=== PATIENT | female | born 1955 | race Caucasian/White ===

== ENCOUNTER → 2022-01-28 | Outpatient (CLI) | payer MEDICARE, BC ==
--- NOTE | 2022-01-28 15:09 | XR ---
EXAMINATION TYPE: XR ribs RT w pa chest xray DATE OF EXAM: 01/28/2022 CLINICAL HISTORY: Chest and right-sided rib pain after recent fall injury. TECHNIQUE: Single frontal view of the chest is obtained. A frontal and oblique images of the right-si ded ribs. COMPARISON: None FINDINGS: There is mild chronic parenchymal change bilaterally without suspicious focal air space op acity, pleural effusion, or pneumothorax seen. The cardiac silhouette size is within normal limits. The osseous structures are somewhat demineralized. Dedicated images of the right-sided ribs show no acute displaced fractures. Overlying soft tissue is unremarkable. IMPRESSION: 1. No acute cardiopulmonary process. 2. No acute displaced right-sided rib fractures.
== END | disposition home or self-care (01) ==
LOC: RADXRMAIN 14:20
PROVIDERS: ATTEND Internal Medicine
DX: R07.81 Pleurodynia (principal); R07.9 Chest pain, unspecified; S29.9XXA Unspecified injury of thorax, initial encounter; W19.XXXA Unspecified fall, initial encounter

== ENCOUNTER → 2024-12-07 | Outpatient (CLI) | payer MEDICARE ==
--- NOTE | 2024-12-07 08:51 | MR ---
EXAMINATION TYPE: MR brain wo/w con DATE OF EXAM: 12/07/2024 COMPARISON: NONE HISTORY: Family hx of dementia, headaches. Mild cognitive impairment of uncertain TECHNIQUE: Multiplanar, multisequence images of the brain and brainstem is performed without and with IV contras t, utilizing 9 mL intravenous Gadobutrol . FINDINGS: Diffusion weighted images demonstrate no evidence of a recent infarct or other diffusion ab normality. There is no extra-axial fluid collection. The ventricular system and cisternal spaces are normal in size and appearance. The brain volume is age appropriate. A few tiny foci of T2 hyperinte nsity is seen throughout the white matter bilaterally. Less than 5 focal lesions are present. Midline structures demonstrate normal morphology. The craniocervical junction appears within normal limits. Post contrast images demonstrate no abnormal enhancement. The dural venous sinuses appear pa tent. The visualized sinuses are clear and the globes are intact. IMPRESSION: Minimal nonspecific white matter changes otherwise unremarkable study. [facility], , 12/07/2024 8:49 AM
== END | disposition home or self-care (01) ==
LOC: RADMRIMAIN 07:45
PROVIDERS: ATTEND Internal Medicine
DX: G31.84 Mild cognitive impairment of uncertain or unknown etiology (principal); R90.82 White matter disease, unspecified
CPT/HCPCS: 70553; A9585

== ENCOUNTER → 2024-12-09 | Outpatient (CLI) | payer MEDICARE ==
--- NOTE | 2025-01-10 16:11 | P.CEMON ---
30 Day Event monitor note: Patient wore an event monitor for 30 days from 12/09/2024 through 01/08/2025. Findings: Patient's baseline heart rate was normal sinus rhythm. There were no signficant atrial fibrillation, atrial flutter, or ventricular tachycardia episodes. There were no significant pauses greater than 2 seconds. There were rare PACs and PVCs representing less than 1% PVC burden There were 33 patient activated events including palpitations which predominantly corresponded with normal sinus rhythm and occasionally with PVCs Conclusions: 30-day event monitor showing normal sinus rhythm and occasional PACs and PVCs. Patient activated events mainly corresponding with normal sinus rhythm and occasionally with PVCs.
--- NOTE | 2025-01-12 09:02 | EM ---
30 Day Event monitor note: Patient wore an event monitor for 30 days from 12/09/2024 through 01/08/2025. Findings: Patient's baseline heart rate was normal sinus rhythm. There were no significant atrial fibrillation, atrial flutter, or ventricular tachycardia episodes. There were no significant pauses greater than 2 seconds. There were rare PACs and PVCs representing less than 1% PVC burden There were 33 patient activated events including palpitations which predominantly corresponded with normal sinus rhythm and occasionally with PVCs Conclusions: 30-day event monitor showing normal sinus rhythm and occasional PACs and PVCs. Patient activated events mainly corresponding with normal sinus rhythm and occasionally with PVCs. MTDD
== END | disposition home or self-care (01) ==
LOC: RADECHMAIN 07:28
PROVIDERS: ATTEND Internal Medicine
DX: I49.3 Ventricular premature depolarization (principal)
CPT/HCPCS: 93270

== ENCOUNTER → 2025-01-04 | Outpatient (CLI) | payer MEDICARE ==
--- NOTE | 2025-01-04 13:42 | MM ---
Reason for Exam: Screening (asymptomatic). Last mammogram was performed 2 year(s) and 1 month(s) ago. Patient History: Menarche at age 15. First Full-Term at age 25. Postmenopausal. Maternal aunt had breast cancer. Risk Values: Kianna 5 year model risk: 1.5%. NCI Lifetime model risk: 5.2%. Prior Study Comparison: 04/22/2018 Bilateral MG 3D screening mammo w/cad, Unknown. 11/18/2022 Bilateral MG 3D screening mammo w/cad, Unknown. Tissue Density: There are scattered areas of fibroglandular density. Findings: Analyzed By CAD. There is no suspicious group of microcalcifications or new suspicious mass in either breast. Overall Assessment: Negative, BI-RAD 1 Management: Screening Mammogram of both breasts in 1 year. . Patient should continue monthly self-breast exams. A clinical breast exam by your physician is recommended on an annual basis. This exam should not preclude additional follow-up of suspicious palpable abnormalities. Note on Kianna scores and lifetime risk: 1. A Kianna score greater than 3% is considered moderate risk. If this is the case, consider specialist referral to assess eligibility for a risk reducing agent. 2. If overall lifetime risk for the development of breast cancer is 20% or higher, the patient may qualify for future screening with alternating mammogram and breast MRI. [facility], , 01/04/2025 1:39 PM. Electronically signed and approved by: Dariusz Llanes M.D. Radiologis
--- NOTE | 2025-01-04 15:09 | BD ---
EXAMINATION TYPE: Axial Bone Density DATE OF EXAM: 01/04/2025 CLINICAL HISTORY: 69 years old Female. ICD-10 CODE: [id number] OSTEO OF RIGHT HIP , Additional History: Height: Weight: FRAX RISK QUESTIONS: Family History (Parent hip fracture): no History of Fracture in Adulthood: yes Secondary Osteoporosis: no RISK FACTORS HISTORY OF: History of lt Wrist Fracture: yes When: 40s Surgery to Spine/Hip(right/left)/Wrist (right/left): no MEDICATIONS: Thyroid Medications: no Osteoporosis Medications: no EXAM MEASUREMENTS: Bone mineral densitometry was performed using the CRAVE System. Bone mineral density as measured about the Lumbar spine is: ----- L1-L4(G/cm2): 0.870 T Score Values are as follows: ----- L1: -3.6 ----- L2: -2.8 ----- L3: -2.2 ----- L4: -2.2 ----- L1-L4: -2.6 Z Score Values are as follows: ----- L1: -2.7 ----- L2: -1.8 ----- L3: -1.3 ----- L4: -1.3 ----- L1-L4: -1.7 Bone mineral density baseline Bone mineral density about the R hip (g/cm2): 0.719 Bone mineral density about the L hip (g/cm2): 0.752 T Score values are as follows: -----R Neck: -3.0 -----L Neck: -2.9 -----R Total: -2.3 -----L Total: -2.0 Z Score values are as follows: -----R Neck: -1.8 -----L Neck: -1.8 -----R Total: -1.5 -----L Total: -1.2 Bone mineral density baseline FRAX%s: The graph provided illustrates a 26.1% chance for a major osteoporotic fx and a 7.8% chance f or the hips probability for fx in 10 years time. IMPRESSION: Osteoporosis (T Score less than -2.5). There is increased fracture risk and therapy is usually indicated based on age. Re-Screen 1-2 years. NOTE: T-SCORE=SD OF THE YOUNG ADULT MEAN. [facility], , 01/04/2025 3:07 PM
== END | disposition home or self-care (01) ==
LOC: RADBDWWP 13:12
PROVIDERS: ATTEND Internal Medicine
DX: Z12.31 Encounter for screening mammogram for malignant neoplasm of breast (principal); R92.323 Mammographic fibroglandular density, bilateral breasts; M81.0 Age-related osteoporosis without current pathological fracture; Z78.0 Asymptomatic menopausal state; M85.88 Other specified disorders of bone density and structure, other site; Z80.3 Family history of malignant neoplasm of breast
CPT/HCPCS: 77063; 77067; 77080